=== PATIENT | female | born 1980 | race Caucasian/White ===

== ENCOUNTER 2025-06-22 00:36 | Emergency (ER) | payer MEDICAID ==
[~2025-06-22] VITALS: Ht 167.6 cm; Wt 100.0 kg
[2025-06-22 00:40] VITALS: TEMP 36.9; O2SAT 100
[2025-06-22] MEDS: KETOROLAC 15MG/ML VIAL IM ONE (01:12)
[2025-06-22 01:52] LABS: BASOPHILS % 0.6 % (0.0-2.0); EOSINOPHILS % 0.8 % (0.0-5.0); HEMATOCRIT. 38.7 % (36.0-48.0); HEMOGLOBIN. 12.3 g/dL (12.0-16.0); LYMPHOCYTES % 21.8 % (20.0-50.0); MEAN PLATELET VOLUME 8.6 fl (7.4-10.4); MONOCYTES % 5.8 % (2.0-8.0); NEUTROPHILS % 71.0 % (40.0-76.0); PLATELET 352 x1000/uL (130-400); RED BLOOD CELL COUNT 5.12 mill/uL (4.2-5.4); RED CELL DISTRIBUTION WIDTH 19.4 % (11.6-14.6)
[2025-06-22 02:03] LABS: CREATININE 1.0 mg/dL (0.6-1.0); UREA NITROGEN BLOOD 15.0 mg/dL (9-23)
[2025-06-22 02:13] LABS: C REACTIVE PROTEIN HIGH SENS 23.76 mg/l (<1.00)
[2025-06-22] MEDS ORDERED: CHLO118L5 TP (03:25)
[2025-06-22] MEDS ORDERED: CHLO3800 TP (03:25)
[2025-06-22 03:35] VITALS: BP 136/97; PULSE 100; RESP 16; O2SAT 98
[2025-06-22 03:48] LABS: ERYTHROCYTE SEDIMENTATION RATE 28 mm/hr (0-20)
== END 2025-06-22 03:41 | disposition home or self-care (01) ==
LOC: ER 00:36
DX: K08.89 Other specified disorders of teeth and supporting structures (principal); E11.9 Type 2 diabetes mellitus without complications; I10 Essential (primary) hypertension; J44.9 Chronic obstructive pulmonary disease, unspecified
CPT/HCPCS: 99283; 80048; 86141; 85025; 85651; 36415; 96372; J1885